=== PATIENT | male | born 1965 ===

== ENCOUNTER 2024-10-23 10:30 | Inpatient (IN) | payer OTHER ==
[~2024-10-23] VITALS: Ht 175.3 cm; Wt 95.3 kg
[2024-10-23 12:58] VITALS: BP 133/84
[2024-11-03] MEDS ORDERED: BUPIVACAINE HCL/MPF 0.5% 30ML VIAL ONE (06:59)
[2024-11-03] MEDS ORDERED: TRANEXAMIC ACID 100MG/1ML (1000MG) AMPUL IV ONE ×3 (06:59→07:30)
[2024-11-03] MEDS ORDERED: KETOROLAC TROMETHAMINE 60 MG VIAL IM ONE ×2 (06:59→07:30)
[2024-11-03] MEDS ORDERED: ISOPROPYL ALCOHOL 30 ML OUNCE TOP ONE ×2 (07:00→07:30)
[2024-11-03] MEDS ORDERED: CEFAZOLIN SODIUM 1,000 MG VIAL ONE ×2 (07:00→10:36)
[2024-11-03] MEDS ORDERED: LIDOCAINE HCL 1%/EPINEPHRINE 20ML VIAL IJ ONE ×2 (07:00→07:30)
[2024-11-03] MEDS ORDERED: MORPHINE SULFATE 4 MG/ML CARTRIDGE IV ONE (07:30)
[2024-11-03] MEDS ORDERED: BUPIVACAINE HCL 30 ML VIAL IJ ONE (07:30)
[2024-11-03] MEDS ORDERED: VANCOMYCIN HCL 1,000 MG VIAL IR ONE (07:30)
[2024-11-03] MEDS ORDERED: CEFAZOLIN SODIUM 1,000 MG VIAL IV ONE (07:30)
[2024-11-03] MEDS ORDERED: OxyCODONE HCL/APAP UD (PERCOCET) PO PRN (09:45)
[2024-11-03] MEDS ORDERED: ONDANSETRON HCL 2 MG/ML VIAL IV PRN (09:45)
[2024-11-03] MEDS ORDERED: MORPHINE SULFATE 4 MG/ML CARTRIDGE IV SCH (12:00)
[2024-11-03] MEDS ORDERED: CEFAZOLIN SODIUM 1,000 MG VIAL IV SCH (12:00)
[2024-11-03 13:00] VITALS: BP 135/90; O2SAT 99
[2024-11-03 16:20] VITALS: BP 132/76; O2SAT 95
[2024-11-03] MEDS ORDERED: GABAPENTIN 100 MG CAPSULE PO SCH (21:00)
[2024-11-03] MEDS ORDERED: ORPHENADRINE CITRATE 100 MG TABLET PO SCH (21:00)
[2024-11-04 00:10] VITALS: BP 128/77; O2SAT 97
[2024-11-04 07:58] LABS: HEMATOCRIT 37.3 % (39.0-48.0); HEMOGLOBIN 12.7 g/dL (13-16.00); MEAN CORPUSCULAR HEMOGLOBIN 30.3 pg (27.00-32.0); MEAN CORPUSCULAR HGB CONC 34.1 g/dl (32.0-36.0); PLATELET COUNT 226 K/uL (150-450); RED BLOOD COUNT 4.19 M/uL (4.00-6.00); RED CELL DISTRIBUTION WIDTH 13.4 % (11.5-14.5)
[2024-11-04 08:27] VITALS: BP 158/85; O2SAT 95
[2024-11-04] MEDS ORDERED: RIVAROXABAN 10 MG TAB PO SCH (09:00)
[2024-11-04 16:00] VITALS: BP 147/75; O2SAT 96
[2024-11-04] MEDS ORDERED: NEURONTIN600 M1 PO (17:37)
[2024-11-04] MEDS ORDERED: TAMS0.4C PO (17:37)
[2024-11-04] MEDS ORDERED: VITAMIN B COMPLEX 1 EACH PO SCH (17:41)
[2024-11-04] MEDS ORDERED: IRON FUM,PS/FOLIC ACID/VITC/B3 1 CAP CAPSULE PO SCH (17:41)
[2024-11-04] MEDS ORDERED: Cyanocobalamin/Mecobalamin 1 TAB.SL SL SCH (17:41)
[2024-11-05 00:51] VITALS: BP 122/73; O2SAT 99
[2024-11-05 06:51] LABS: HEMATOCRIT 34.7 % (39.0-48.0); HEMOGLOBIN 12.2 g/dL (13-16.00); MEAN CELL VOLUME 87.4 fL (80.0-100.00); MEAN CORPUSCULAR HEMOGLOBIN 30.7 pg (27.00-32.0); MEAN CORPUSCULAR HGB CONC 35.1 g/dl (32.0-36.0); PLATELET COUNT 208 K/uL (150-450); RED BLOOD COUNT 3.97 M/uL (4.00-6.00); RED CELL DISTRIBUTION WIDTH 13.4 % (11.5-14.5)
[2024-11-05 08:06] VITALS: BP 144/84; O2SAT 97
[2024-11-05] MEDS ORDERED: OxyCODONE HCL/APAP UD (PERCOCET) PO PRN (12:00)
== END 2024-11-05 14:49 | DRG 470 ==
LOC: SURH 11-03 04:59 → O/R 11-03 04:59 → SURH 11-03 07:00
PROVIDERS: ADMIT Orthopaedic Surgery; ATTEND Orthopaedic Surgery
PROC: 0SRC0JZ Replacement of Right Knee Joint with Synthetic Substitute, Open Approach (ICD-10-PCS; principal; 2024-11-03 07:00)
DX: M17.11 Unilateral primary osteoarthritis, right knee (principal); D62 Acute posthemorrhagic anemia; M85.661 Other cyst of bone, right lower leg